=== PATIENT | male | born 1990 | race Hispanic/Latino ===

== ENCOUNTER 2023-10-21 08:27 | Emergency (ER) | payer OTHER ==
[~2023-10-21] VITALS: Ht 167.6 cm; Wt 104.3 kg
[2023-10-21 08:50] VITALS: BP 112/70; PULSE 78; RESP 18; O2SAT 99
[2023-10-21] MEDS ORDERED: HYDR25SU38 RC (09:06)
== END 2023-10-21 09:57 | disposition home or self-care (01) ==
LOC: EDH 08:27
DX: K64.8 Other hemorrhoids (principal); Z98.890 Other specified postprocedural states
CPT/HCPCS: 99282